=== PATIENT | male | born 1995 | race Two or more races ===

== ENCOUNTER 2025-04-08 06:09 | Day surgery (SDC) | payer BC, SELFPAY ==
[2025-04-08] VITALS (11 sets, daily range): BP systolic 142–163; BP diastolic 88–101; BMI 23.4
[2025-04-08] MEDS: DILAUDID 0.25 MG IV (10:41)
[2025-04-08] MEDS: ROXICODONE 5 MG PO (11:46)
== END 2025-04-08 10:35 | disposition home or self-care (01) ==
LOC: SDS 06:09
PROVIDERS: ATTENDING PHYSICIAN Otolaryngology
DX: J34.3 Hypertrophy of nasal turbinates (principal); J34.2 Deviated nasal septum; J34.89 Other specified disorders of nose and nasal sinuses
CPT/HCPCS: 30140; 88300